=== PATIENT | female | born 1950 | race Hispanic/Latino ===

== ENCOUNTER → 2023-08-16 14:56 | Outpatient (REF) | payer BC, SELFPAY | LOC: RAD 14:56 | PROVIDERS: ATTENDING PHYSICIAN Nurse Practitioner Family | DX: M25.561 Pain in right knee (principal) | CPT/HCPCS: 73564 ==

== ENCOUNTER → 2023-12-16 12:00 | Outpatient (REF) | payer MEDICARE, BC, SELFPAY | LOC: HWWDC 12:00 | PROVIDERS: ATTENDING PHYSICIAN Nurse Practitioner Family | DX: Z12.31 Encounter for screening mammogram for malignant neoplasm of breast (principal) | CPT/HCPCS: 77063; 77067 ==

== ENCOUNTER → 2024-09-30 11:01 | Outpatient (REF) | payer MEDICARE, BC, SELFPAY | LOC: HWRAD 11:01 | PROVIDERS: ATTENDING PHYSICIAN Nurse Practitioner Family | DX: Z87.891 Personal history of nicotine dependence (principal) | CPT/HCPCS: 71271 ==

== ENCOUNTER → 2024-10-06 13:20 | Outpatient (REF) | payer MEDICARE, BC, SELFPAY | LOC: RCS 13:20 | PROVIDERS: ATTENDING PHYSICIAN Nurse Practitioner Family | DX: E11.65 Type 2 diabetes mellitus with hyperglycemia (principal); R07.89 Other chest pain; E78.2 Mixed hyperlipidemia; I10 Essential (primary) hypertension; Z72.0 Tobacco use | CPT/HCPCS: 93017; 93350 ==

== ENCOUNTER 2024-10-11 03:18 | Emergency (ER) | payer MEDICARE, BC, SELFPAY ==
[2024-10-11 03:22] VITALS: BP 171/65
[2024-10-11 03:39] VITALS: BP 149/61
[2024-10-11 04:00] VITALS: BP 164/56
--- NOTE | 2024-10-11 05:46 | ED.GENMED ---
History of Present Illness
General
Chief Complaint: Medication Reaction
Source: patient and spouse
Exam Limitations: none
Time Seen by Provider: 10/11/24 04:08
Nursing documentation reviewed up to this point in time: agreed with
History of Present Illness
History of Present Illness:
Note:
CHIEF COMPLAINT(S)
Headache after starting a new medication.
HISTORY OF PRESENT ILLNESS
The patient is a 74-year-old female with a history of atrial fibrillation who began taking Apixaban (Eliquis) three days ago. She reports experiencing headaches since starting the medication. The medication was prescribed after a stress test at
[facility], in collaboration with a nurse practitioner named Lio Chung and a manager corporate communications. The headaches began after the initiation of Apixaban, leading to concerns about a medication reaction. If any pre-existing conditions were
checked with a PET scan, the results were reassuring, suggesting no complications such as cerebral hemorrhage. There is hesitation to discontinue the Apixaban abruptly due to the risk of stroke; thus, continuing the medication with a suggestion to
switch to another anticoagulant, such as Rivaroxaban (Xarelto), is considered. Currently, the patient reports feeling better.
PHYSICAL EXAM
General: Alert, no acute distress.
Skin: Warm, dry.
Head: Normocephalic, atraumatic.
Neck: Supple, trachea midline.
Eye Ears, nose, mouth and throat: Oral mucosa moist.
Cardiovascular: Normal peripheral perfusion, No edema. Heart rhythm described as regular.
Respiratory: Respirations are non-labored.
Gastrointestinal: Abdomen nondistended.
Musculoskeletal: Normal range of motion, normal strength.
Neurological: Alert and oriented to person, place, time, and situation, No focal neurological deficit observed.
Psychiatric: Cooperative, appropriate mood & affect.
PLAN
The current plan includes continuing Apixaban while attempting to reach out to the patients manager corporate communications to discuss a possible switch to Rivaroxaban. The priority is to prevent stroke risk while finding an alternative with lesser side effects. The
patient is advised to return if symptoms worsen or if there is any difficulty in securing an alternative prescription.
DIFFERENTIAL DIAGNOSIS
The Differential Diagnosis includes, in no particular order, and is not limited to:
1. Headache secondary to medication reaction
2. Tension headache
3. Migraine
4. Hypertension-related headache
5. Subdural hematoma (less likely given clear imaging)
6. Brain tumor (less likely given clear imaging)
7. Anxiety-related headache
8. Sinusitis
9. Temporal arteritis
10. Occipital neuralgia
Disposition:
SUMMARY OF ENCOUNTER
The patient is a 74-year-old female presenting to the emergency department with headaches that started three days ago, shortly after beginning medication therapy with Apixaban for paroxysmal atrial fibrillation. The medication was prescribed by a
nurse practitioner. The headaches have now resolved and the patient currently reports no symptoms.
DISPOSITION
Discharge.
PLAN
The patient will be discharged home and is advised to contact the nurse practitioner for a follow-up call to discuss a possible switch from Apixaban. She was instructed to return to the emergency room if any changes in symptoms occur.
PATIENT EDUCATION AND COUNSELING
The patient was advised about the importance of monitoring her symptoms and the potential side effects of Apixaban. She was instructed to contact the emergency department if symptoms recur or if new symptoms develop.
FOLLOW-UP INSTRUCTIONS
The patient is to follow up with the nurse practitioner as soon as possible today via telephone to discuss the possibility of changing from Apixiban.
MEDICAL DECISION MAKING
- Complexity of Data Reviewed: Chronic conditions affecting care include paroxysmal atrial fibrillation. Differential Diagnosis includes headache secondary to medication reaction, tension headache, migraine, hypertension-related headache, subdural
hematoma, brain tumor, anxiety-related headache, sinusitis, temporal arteritis, and occipital neuralgia.
- Category 3: Discussion of management with other physician, healthcare provider, or other source: The patient is to contact the nurse practitioner to discuss the management of her anticoagulation therapy and the possibility of switching from
Apixaban.
- Risk: Consideration of Admission/Observation: Escalation of care including admission/observation was considered given the complexity and risk of the patients presenting complaint, exam findings, and underlying comorbidities. However, ultimately I
feel the patient is safe for outpatient management with close follow-up. Reasoning: Work-up reassuring, does not reveal any acute life/organ threatening processes, patients symptoms well controlled upon reevaluation, reexamination is reassuring,
vitals are stable, patient agreeable with discharge, reliable for follow-up.
DIAGNOSIS
Headache secondary to medication reaction (ICD-10: R51.9).
Past History
Past History
ED Past Medical History: Hypercholesterolemia, NIDDM and Psychiatric
ED Past Surgical History: Gynecological (Breast reduction)
Social History
Tobacco: Smoker (Occasional)
Alcohol: None
Personal:
Living: with family
Family History
Family History: Diabetes
Review of Systems
Review of Systems
Allergies reviewed?: Yes
All Other Systems: ROS reviewed and negative except as documented in HPI and ROS
Phy Exam
Physical Exam
Physical Exam:
.
Course
Orders/Labs/Results
Orders:
Orders
10/11/24 03:30
EKG [Electrocardiogram (*1)] Urgent
Reason for Study: Vertigo / Dizzy
EKG- Treatment ONCE
10/11/24 04:08
CT Head W/o Iv Contrast Urgent
Comment:
Reason For Exam: dizziness and BURR after starting eliquis
Vital Signs
Initial and Last Documented VS:
Initial Vital Signs
Temp Pulse Resp BP Pulse Ox
98.4 F 59 18 171/65 100
10/11/24 03:22 10/11/24 03:22 10/11/24 03:22 10/11/24 03:22 10/11/24 03:22
Last Documented Vital Signs
Temp Pulse Resp BP Pulse Ox
98.4 F 57 12 164/56 97
10/11/24 03:22 10/11/24 04:15 10/11/24 04:15 10/11/24 04:00 10/11/24 05:48
*Radiology
Radiology exam reviewed: radiology read reviewed
*Pulse Oximetry
SaO2: 97
Oxygen Mode of Delivery: Room air
Patient hypoxic: no
*Critical Care Note
Total Time (30-74mins, 75-104mins- exclusive of procedures): Not Applicable
ED Attending Note
-
Portions of this chart may have been created with voice recognition software.� Occasional wrong word or��sound alike� substitutions may have occurred due to the inherent limitations of voice recognition software.
Discharge Plan
Departure
Patient Disposition: Home (Routine Discharge)
Date of Disposition: 10/11/24
Time of Disposition: 05:47
Patient with high blood pressure during this ER visit?: Yes
Condition: Good
Discharge Problem:
Headache, Medication reaction
Instructions: Headache in adults - ED (DC), Side effects from medicines in adults - ED (DC), BLOOD PRESSURE
Prescriptions:
No Action
metformin 1,000 MG tablet
1,000 mg PO BID
clonazepam 0.5 MG tablet
0.5 mg PO HS
hydrocodone-acetaminophen [Vicodin] 1 EACH tablet
1 ea PO Q6HPRN PRN (Reason: pain) Qty: 15 0RF
Referrals:
PRIVATE,PHYSICIAN [Family Provider, Internal Medicine]
Activity Restrictions/Additional Instructions:
Please call your family doctor to review Eliquis, as discussed
Thank You for choosing [facility].
It was a pleasure meeting you and taking part in your care. We hope for your continued healing and wellness.
Please read discharge instructions in their entirety. However, they are for general education and may not describe your exact diagnosis at discharge. Information on your ER visit and medical conditions were discussed with you along with appropriate
follow up information...
If indicated, please take your medications as instructed and indicated on discharge paperwork.
Please schedule a follow up appointment as directed. Call to schedule an appointment
Please return to the emergency department with ANY change in, persisting, or worsening of symptoms. If any of your symptoms do not improve, or persist, or become more severe within 6-12 hours, please return to the emergency department for further
care.
Please return to the emergency department if you develop a headache, neck pain/stiffness, fever greater than 100.4F, chest pain, shortness of breath, persistent nausea, vomiting, slurred speech, difficulty walking, numbness/tingling, weakness, signs
of infection or any other symptoms that are worrisome to you.
If you have any questions or concerns please do not hesitate to call the Hospital at or E-mail me directly at [email or web address]
Interventions
Interventions:
*Risk Screen - Suicide Last Done: 10/11/24 03:22
*General Assessment Last Done: 10/11/24 03:22
*Neglect/Abuse Screening Last Done: 10/11/24 03:22
Discharge Date and Time
Print Language: [id number]
== END 2024-10-11 06:12 | disposition home or self-care (01) ==
LOC: EMR 03:18
PROVIDERS: EMERGENCY PHYSICIAN Student in an Organized Health Care Education/Training Program
DX: R51.9 Headache, unspecified (principal); R42 Dizziness and giddiness; T50.905A Adverse effect of unspecified drugs, medicaments and biological substances, initial encounter; R03.0 Elevated blood-pressure reading, without diagnosis of hypertension; I48.0 Paroxysmal atrial fibrillation; E11.9 Type 2 diabetes mellitus without complications; E78.00 Pure hypercholesterolemia, unspecified; E07.9 Disorder of thyroid, unspecified; F41.9 Anxiety disorder, unspecified; F17.200 Nicotine dependence, unspecified, uncomplicated; Z79.84 Long term (current) use of oral hypoglycemic drugs
CPT/HCPCS: 99284; 70450; 93005

== ENCOUNTER → 2024-10-26 13:38 | Outpatient (REF) | payer MEDICARE, BC, SELFPAY | LOC: HWRCS 13:38 | PROVIDERS: ATTENDING PHYSICIAN Internal Medicine Cardiovascular Disease; FAMILY PHYSICIAN Nurse Practitioner Family | DX: I48.0 Paroxysmal atrial fibrillation (principal); R06.09 Other forms of dyspnea | CPT/HCPCS: 93306 ==

== ENCOUNTER → 2024-12-16 11:32 | Outpatient (REF) | payer MEDICARE, BC, SELFPAY | LOC: HWWDC 11:32 | PROVIDERS: ATTENDING PHYSICIAN Nurse Practitioner Family | DX: Z12.31 Encounter for screening mammogram for malignant neoplasm of breast (principal) | CPT/HCPCS: 77063; 77067 ==